=== PATIENT | female | born 1980 | race Caucasian/White ===

== ENCOUNTER 2017-03-03 09:38 | Emergency (ER) | payer BC ==
[~2017-03-03] VITALS: Ht 167.6 cm; Wt 103.9 kg
--- NOTE | ~2017-03-03 | CT98 ---
[facility] A [facility] RADIOLOGY TEXT RESULTS PATIENT: LOCATION: SED : 80 UNIT #: [id number] AGE: [address]: Olamide Love SEX: F ORDER DR: [id number] [address] [id number] MR#: [id number] Acc #: [id number] NAME: September : 1980 SEX: F STUDY DATE/TIME: 03/03/2017 10:38 UNIT: SED ROOM: STUDY DESCRIPTION: CT Lumbar Spine Wo Cont Attending Physician: Olamide Love Pa-C Ordering Physician: Olamide Love Pa-C Primary Care Physician: Shelli Primary Care Physician MEDICAL IMAGING REPORT This report is preliminary unless electronic signature is present. EXAM CT lumbar spine without contrast DATE 03/03/2017 HISTORY Low back pain for 8 days. Numbness and tingling sensation radiating down both legs. Previous history of herniated disc for years ago. No documented trauma. COMPARISON None. PROCEDURE 2 mm noncontrast axial images through the lumbar spine. Sagittal and coronal reformatted images were obtained. This CT exam was performed with one or more of the following radiation dose reduction techniques: Automatic exposure control, adjustment of mA and/or kV according to patient size, and iterative reconstruction. FINDINGS Lumbar vertebral bodies demonstrate normal height and alignment without fracture. There is mild diminished disc height at L5-S1. There is approximately 4 mm retrolisthesis L5 upon S1. 2.1 x 2.7 cm incompletely imaged left adrenal low-density nodule has density compatible with a benign adenoma (Hounsfield units 5.35). Remainder of the included paraspinal soft tissues otherwise appear within normal limits. At T12-L1, no significant disc bulge, canal or foraminal stenosis is seen. [facility] A [facility] RADIOLOGY TEXT RESULTS PATIENT: LOCATION: SED : 80 UNIT #: [id number] AGE: [address]: Olamide Love SEX: F ORDER DR: At L1-2, no significant disc bulge, canal or foraminal stenosis is seen. At L2-3, no significant disc bulge, canal or foraminal stenosis is seen. At L3-4, there is mild concentric disc bulge slightly centric to the right paravertebral region posteriorly. There is mild right greater left facet arthropathy. There is [id number] right neural foraminal narrowing, minimal left neural foraminal narrowing, and borderline canal stenosis. At L4-5, there is moderate concentric disc bulge with mild bilateral facet arthropathy and ligamentum flavum hypertrophy. There is resulting moderate to severe canal stenosis. Moderate bilateral inferior neural foraminal narrowing is present. Posterior osteophyte formation is seen along the superior endplate of L5 resulting in focal moderate severe central canal stenosis. At L5-S1, there is diminished disc height with mild broad-based disc osteophyte formation eccentric to the right paracentral to foraminal region. Suspected severe right, moderate left neural foraminal narrowing with moderate canal stenosis. There is severe right lateral recess stenosis. This likely impinges upon the right S1 nerve root within the canal. IMPRESSION 1. No acute lumbar spine findings. 2. Degenerative changes in the lumbar spine, greatest at L4-5 and L5-S1. 3. At L4-5, there is moderate to severe canal stenosis due to the presence of central posterior osteophyte formation and concentric disc bulge. This likely impinges upon the bilateral L5 nerve roots within the canal, and results in moderate bilateral neural foraminal narrowing. 4. At L5-S1, there is concentric disc bulge with right paracentral disc osteophyte formation resulting in severe right lateral recess stenosis, which may impinge upon the right S1 nerve root within the canal. Moderate to severe right, moderate left L5-S1 neural foraminal narrowing. 5. 4 mm retrolisthesis L5 upon S1 with mild diminished disc height at L5-S1. 6. Incidental finding of benign left adrenal adenoma. Dictated by... Mary Briceno M.D. THIS IS AN ELECTRONICALLY VERIFIED REPORT Mary Briceno M.D. at 03/06/2017 8:48 AM [facility] A Service of [facility] RADIOLOGY TEXT RESULTS PATIENT: TOÑO LOCATION: SED : 80 UNIT #: [id number] AGE: [address]: Olamide Love SEX: F ORDER DR: TD: 03/03/2017 15:23 JOB #: [id number] MEDICAL IMAGING REPORT Page 1 of 1
[~2017-03-03 09:38] MED LIST: FLONASE16 GM; NO MEDICATIONS; SUDAFED PO; ZYRTEC PO
[2017-03-03 10:16] LABS: URINE SOURCE CLEAN CATCH
[2017-03-03 10:19] LABS: URINE APPEARANCE CLOUDY; URINE BLOOD TRACE-INTACT (NEG); URINE COLOR YELLOW; URINE KETONE 1+ (NEG); URINE LEUKOCYTE ESTERASE 2+ (NEG); URINE NITRATE POS (NEG); URINE PROTEIN 2+ (NEG); URINE SPECIFIC GRAVITY >=1.030 (1.003-1.035)
[2017-03-03 10:22] LABS: URINE GLUCOSE 50 MG/DL (NORM)
[2017-03-03 10:23] LABS: MICRO INDICATED? YES; URINE BILIRUBIN NEG (NEG)
[2017-03-03 10:26] LABS: CULTURE INDICATED? YES; URINE BACTERIA 3+ (NEG); URINE RBC 0-2 /[HPF] (0-2); URINE SQUAMOUS EPITHELIAL CELL MANY /[HPF]; URINE WBC 100-200 /[HPF] (0-5)
== END 2017-03-03 12:16 | disposition home or self-care (01) ==
LOC: SED 09:38
PROVIDERS: Physician Assistant
DX: M51.36 Other intervertebral disc degeneration, lumbar region (principal); N39.0 Urinary tract infection, site not specified; F17.200 Nicotine dependence, unspecified, uncomplicated; Z98.890 Other specified postprocedural states; Z88.1 Allergy status to other antibiotic agents; Z88.5 Allergy status to narcotic agent
CPT/HCPCS: 72131; 81003; 84703; 87086; 96372; 99284; J1040; J1885